=== PATIENT | female | born 1960 | race Caucasian/White ===

== ENCOUNTER 2023-04-08 14:39 | Outpatient (AMB) | payer OTHER, SELFPAY ==
--- NOTE | 2023-04-08 14:47 | MHC.OFFWIV ---
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 Patient Tobacco Use Status: Never used Tobacco Allergies ciprofloxacin [From Cipro HC] Adverse Reaction (Intermediate, Verified 04/09/23 06:28) Stomach Upset hydrocortisone [From Cipro HC] Adverse Reaction (Intermediate, Verified 04/09/23 06:28) Stomach Upset Medication List - Last Reconciled 04/09/23 by Dimitris Diaz MD atenolol 25 mg PO DAILY empagliflozin (Jardiance) 10 mg PO DAILY glipizide 10 mg PO BID lisinopril 5 mg PO DAILY metformin 1,000 mg PO BID phenazopyridine (Pyridium) 200 mg PO TID 3 days sulfamethoxazole-trimethoprim 800-160 mg (Bactrim DS) 1 tab PO BID 7 days Do you need a note to return to daycare/school/sports/work: No HPI LEAD INVESTIGATOR, 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 Reports symptoms of increased frequency of urination, burning on urination and discomfort in the suprapubic area. Symptoms started in the past few days. No fevers or chills. No nausea or vomiting. PFSH Social History Patient Tobacco Use Status: Never used Tobacco Physical Exam Vital Signs: Last Vital Signs Temp 96.2 F L 04/08/23 14:48 Pulse 71 04/08/23 14:48 BP 104/60 04/08/23 14:48 Pulse Ox 97 04/08/23 14:48 Oxygen Delivery Method Room Air 04/08/23 14:48 General: Yes Bimanual renal exam normal bilaterally, Yes bladder normal to palpation and Yes no CVA tenderness Bimanual exam- vagina & uterus: bladder normal to palpation Back/Spine/Pelvis Back: no CVA tenderness Results AMB Urinalysis, Automated UA Leukoctes 0 Eryn/uL Last Edit by Cande Pichardo CMA on 04/08/23 14:53 UA Nitrite Negative Last Edit by Cande Pichardo CMA on 04/08/23 14:53 UA Urobilinogen 0.2 mg/dL Last Edit by Cande Pichardo, KATTY on 04/08/23 14:53 UA Protein 0 mg/dL Last Edit by Cande Pichardo, KATTY on 04/08/23 14:53 UA pH 6.0 Last Edit by Cande Pichardo, KATTY on 04/08/23 14:53 UA Blood 0 George/uL Last Edit by Cande Pichardo, KATTY on 04/08/23 14:53 UA Specific [place] 1.015 Last Edit by Cande Pichardo, KATTY on 04/08/23 14:53 UA Ketone Positive Last Edit by Cande Pichardo, KATTY on 04/08/23 14:53 UA Bilirubin 0 mg/dL Last Edit by Cande Pichardo, KATTY on 04/08/23 14:53 UA Glucose 3 mg/dL Last Edit by Cande Pichardo, KATTY on 04/08/23 14:53 Results Reviewed Results Reviewed: Laboratory Last Values Urine pH (Auto) 6.0 04/08/23 14:52 Specific [place] (Auto) 1.015 04/08/23 14:52 Urine Protein (Auto) 0 mg/dL 04/08/23 14:52 Glucose (UA)(Auto) 3 mg/dL 04/08/23 14:52 Urine Ketones (Auto) Positive 04/08/23 14:52 Urine Blood (Auto) 0 George/uL 04/08/23 14:52 Urine Nitrite (Auto) Negative 04/08/23 14:52 Urine Bilirubin (Auto) 0 mg/dL 04/08/23 14:52 Urine Urobilinogen (Auto) 0.2 mg/dL 04/08/23 14:52 Leukocyte Esterase (Auto) 0 Eryn/uL 04/08/23 14:52 Assessment & Plan Assessment & Plan (1) Urinary tract infection: Code(s): N39.0 - Urinary tract infection, site not specified Plan: Take antibiotics and Pyridium as directed. Increase fluid intake. If symptoms of burning persist, new onset of fever or lower back pain, to follow-up at the clinic. Orders: Orders AMB Urinalysis Automated 04/08/23 Z13.9 - Encounter for screening, unspecified Medications: New sulfamethoxazole-trimethoprim 800-160 mg (Bactrim DS) 1 tab PO BID 14 tabs 0RF 7 days phenazopyridine (Pyridium) 200 mg PO TID 9 tabs 0RF 3 days Coding Level of Care Code Est Pt Level 3 (32620) Diagnoses Urinary tract infection N39.0
[2023-04-08 14:48] VITALS: BP 104/60; PULSE 71; TEMP 35.7; O2SAT 97
== END 2023-04-08 15:38 | disposition home or self-care (01) ==
LOC: HO.HMGWI 14:39
PROVIDERS: PCP Internal Medicine; Visit Provider Internal Medicine
DX: N39.0 Urinary tract infection, site not specified (principal)
CPT/HCPCS: 81003; 99213

== ENCOUNTER 2024-01-03 13:09 | Outpatient (AMB) | payer OTHER, SELFPAY ==
--- NOTE | 2024-01-03 13:20 | AM.OFFWIN_ITS ---
Intake Vital Signs 01/03/24 13:21 Height 5 ft 4 in Weight 149 lb BMI 25.6 BP 118/60 Blood Pressure Location Lt brachial Position Sitting Pulse 69 Pulse Source Pulse Oximeter Temp 97.5 F Temp Source Oral Pulse Oximetry (%) 97 Oxygen Delivery Method Room Air Intake Visit Reasons: EP sinus/head pressure lost taste Intake Note: Pt is here today c/o sinus/head congestion. Lost of taste x5 days Patient Tobacco Use Status: Never used Tobacco Allergies ciprofloxacin [From Cipro HC] Adverse Reaction (Intermediate, Verified 01/03/24 13:48) Stomach Upset hydrocortisone [From Cipro HC] Adverse Reaction (Intermediate, Verified 01/03/24 13:48) Stomach Upset Medication List - Last Reconciled 01/03/24 by Katy Blankenship, WARD HELPER- atenolol 25 mg PO DAILY empagliflozin (Jardiance) 10 mg PO DAILY glipizide 10 mg PO BID lisinopril 5 mg PO DAILY metformin 1,000 mg PO BID HPI HPI Comments History of Present Illness Details Here today with complaints of sinus pressure, congestion, cough. This has been ongoing for about a week. She was seen by another urgent care on and started on Augmentin. Unfortunately she continues to have pressure in her head and sinuses. She has also lost her sense of smell and taste. She is using Flonase and Zyrtec in addition to taking the Augmentin. She reports that home COVID tests have been negative. [facility] Social History Patient Tobacco Use Status: Never used Tobacco Review of Systems Const All systems reviewed & are unremarkable except as noted in HPI and below Physical Exam Vital Signs: Last Vital Signs Temp 97.5 F 01/03/24 13:21 Pulse 69 01/03/24 13:21 BP 118/60 01/03/24 13:21 Pulse Ox 97 01/03/24 13:21 Oxygen Delivery Method Room Air 01/03/24 13:21 BMI result Body Mass Index 25.6 Const Other: Awake alert NAD Sclera and conjunctiva clear bilat TM intact and clear bilat Nares patent, turbinates within normal limits, frontal and maxillary sinus tenderness bilat MMM, pharynx WNL RRR LS CTAB Assessment & Plan Assessment & Plan (1) Upper respiratory infection: Code(s): J06.9 - Acute upper respiratory infection, unspecified Qualifiers: URI type: unspecified URI Qualified Code(s): J06.9 - Acute upper respiratory infection, unspecified Plan: . Orders: Orders SARS-CoV2/FLU/RSV Today R09.89 - Other specified symptoms and signs involving the circulatory and respiratory systems Medications: New prednisone 20 mg PO DAILY 5 tabs 0RF Patient Instructions: Viral swab which looks for COVID, flu, RSV obtained today, results pending at the time of the note closure. Patient will be notified only if positive results. She should continue to take her Augmentin as directed. I have sent in a new prescription for prednisone to help with the pain and inflammation that she is experiencing in her sinuses. She was educated about the effects of prednisone and how to manage with her diabetes. She was given an out of work note through 01/07/2024 that she can use if she needs it. If she continues to feel unwell or does not feel any better with this treatment, I recommend that she follow up with her primary care provider. Coding Level of Care Code Est Pt Level 4 (63924) Diagnoses Upper respiratory tract infection, unspecified type J06.9 URI type: unspecified URI
[2024-01-03 13:21] VITALS: BP 118/60; PULSE 69; TEMP 36.4; O2SAT 97; BMI 25.6
== END 2024-01-03 14:11 | disposition home or self-care (01) ==
PROVIDERS: PCP Internal Medicine; Visit Provider Nurse Practitioner Family
DX: J06.9 Acute upper respiratory infection, unspecified (principal)
CPT/HCPCS: 99051; 99214

== ENCOUNTER 2024-01-03 15:08 | Outpatient (REF) | payer OTHER, SELFPAY ==
[2024-01-03 15:59] LABS: Influenza A PCR NEGATIVE (Negative); Influenza B PCR NEGATIVE (Negative); Resp Syncy Virus RNA Qual PCR NEGATIVE (Negative); SARS COV2 PCR INHOUSE NEGATIVE (Negative)
== END 2024-01-03 15:09 | disposition home or self-care (01) ==
LOC: HO.LNP 15:08
PROVIDERS: Visit Provider Nurse Practitioner Family
DX: R09.89 Other specified symptoms and signs involving the circulatory and respiratory systems (principal)
CPT/HCPCS: 0241U

== ENCOUNTER 2024-03-07 00:30 | Emergency (ER) | payer OTHER, SELFPAY ==
--- NOTE | 2024-03-07 00:37 | ED.GENADULT ---
HPI - General Adult General Chief complaint: General Medical Stated complaint: allergic reaction? swollen face Time Seen by Provider: 03/07/24 00:35 Source: patient Mode of arrival: ambulatory Limitations: no limitations History of Present Illness ED Provider: Kim MENDOZA HPI narrative: 63 yo f presents w/ rash to face/ cheeks , nausea, itchy heavy tounge s/p eating beats at around 5:00pm earlier today. Some symptoms started shortly after and progressed throughout the night. She last ate beats years ago. All other things she had for dinner she eats regularly and has never had issues with them. Reports she thought she was short of breath earlier but this improved now she is mostly concerned that her cheeks look swollen and her tongue is tingly. She is on lisinopril. She denies fevers, chills, cp, sob, vomiting, diarrhea, abd pain. No new products other than beats that she can think of. No allergy testing in the past. She doesnt carry an epipen. Did not take anything otc at home. Related Data Home Medications ?Medication ?Instructions ?Recorded ?Confirmed atenolol 25 mg tablet 25 mg PO DAILY 04/08/23 01/03/24 empagliflozin 10 mg tablet 10 mg PO DAILY 04/08/23 01/03/24 (Jardiance) glipizide 5 mg tablet 10 mg PO BID 04/08/23 01/03/24 lisinopril 5 mg tablet 5 mg PO DAILY 04/08/23 01/03/24 metformin 500 mg tablet 1,000 mg PO BID 04/08/23 01/03/24 Previous Rx's ?Medication ?Instructions ?Recorded prednisone 20 mg tablet 20 mg PO DAILY #5 tabs 01/03/24 diphenhydramine HCl 25 mg capsule 25 mg PO TID PRN allergic reaction 03/07/24 (Benadryl) #20 caps epinephrine 0.3 mg/0.3 mL 0.3 mg (0.3 mL) IM Q4H PRN 03/07/24 injection, auto-injector (EpiPen anaphylaxis #2 ea 2-Robert) prednisone 20 mg tablet 20 mg PO DAILY 5 days #5 tabs 03/07/24 Allergies Allergy/AdvReac Type Severity Reaction Status Date / Time ciprofloxacin [From [facility]] AdvReac Intermediate Stomach Verified 03/07/24 00:45 Upset Review of Systems Review of Systems: Yes all other systems are reviewed and are negative [facility] Past Medical History Attestation statement: The following information was validated with the patient. Source: old records reviewed and nursing notes reviewed Social History Social History Patient Tobacco Use Status: Never used Tobacco Patient : No Physical Exam ED Vital Signs: Vital Signs - 24 hr 03/07/24 00:39 Temperature 97.4 F Pulse Rate 74 Respiratory Rate 18 Blood Pressure 156/74 H Pulse Oximetry 100 Oxygen Delivery Method Room Air BMI result Body Mass Index 25.6 vss Appearance: Alert.? Oriented X3.? No acute distress.? Head: Normocephalic, atraumatic, no step-offs or deformities + mild flushing of the cheeks b/l Eyes: Pupils equal, round and reactive to light.? Neck: Normal inspection.? Neck supple.? ENT: patent airway. uvula midline. No swelling to hard/ soft palate, lips, tongue, cheeks. CVS: Normal heart rate and rhythm.? Pulses normal.? Respiratory: No respiratory distress.? Breath sounds normal.? Abdomen: Soft and nontender.? Skin: Skin warm and dry.? Normal skin color.? Normal skin turgor.? Extremities: No lower extremity edema.? No calf ttp. 5/5 strength to bilateral upper and lower extremities Back: No midline tenderness, no C-spine tenderness, full range of motion, no CVA tenderness bilaterally Neuro: Oriented X 3.? No motor deficit.? No sensory deficit. CN 2-12 intact Course Reevaluation(s) Reevaluation #1: POC 152 patient ate prior to arrival. Will hold on insulin at this time. I do not suspect DKA, HHS. Patient reports shes feeling better tonuge no longer heavy. Tired and light headed --> likely from the Benadryl. Time: 01:25 Reevaluation #2: Plan is dc at 2:30 no signs of airway compromise. No signs of anaphylaxis. Had a long conversation with patient and significant other at the bedside in regards to EpiPen use and proper use. They verbalized understanding. Educated patient on diagnosis and treatment plan, answered all question, patient verbalizes understanding. At this time patient will be discharged home, advised to return with new or worsening symptoms. Educated on worrisome signs and symptoms and when to return. At this time I feel comfortable discharge home. Time: 01:26 Medications Administered Discontinued Medications Generic Name Dose Route Start Last Admin Trade Name Debbie PRN Reason Stop Dose Admin Dexamethasone Sodium Phosphate 10 mg 03/07/24 00:39 03/07/24 00:59 Dexamethasone Sod Phosphate 10 Mg/Ml Vial IVPUSH 03/07/24 00:40 10 mg ONCE ONE Administration Diphenhydramine HCl 50 mg 03/07/24 00:39 03/07/24 00:58 Diphenhydramine Hcl 50 Mg/Ml Vial IVPUSH 03/07/24 00:40 50 mg ONCE ONE Administration Famotidine 20 mg 03/07/24 00:39 03/07/24 00:58 Famotidine/Pf 20 Mg/2 Ml Vial IVPUSH 03/07/24 00:40 20 mg ONCE ONE Administration Medical Decision Making Medical Decision Making [facility] Narrative: 0052 63-year-old female presents with concerned she may be having an allergic reaction 2 beats. Physical exam No swelling to hard/ soft palate, lips, tongue, cheeks. Bilateral flushing of the cheeks History and physical exam concerning for allergic reaction. Unlikely anaphylaxis or angioedema. No signs of acute threat the airway. Plan at this time will give IV meds and monitor. Differential Diagnosis Differential Diagnoses: The differential diagnosis associated with the presentation includes History and physical exam concerning for allergic reaction. Unlikely anaphylaxis or angioedema. No signs of acute threat the airway. Admission/Observation Consideration of admission/observation: Escalation of care including admission/observation considered Lab Data [facility] Lab Attestation statement: I reviewed the patient's lab results. Prescription Management I considered prescription management with: Other (benadryl, prednsione, epipen ) Chronic Conditions Patient?s care impacted by: Other Critical Care Time Critical Care Time Critical Care Time: Yes Total Critical Care Time: 35 Attestation: I attest to this time spent taking care of the patient, obtaining history, physical, reviewing labs, imaging, speaking to my attending, specialist or hospitalist. Discharge Plan Discharge Clinical Impression: Allergic reaction Patient Disposition: Home, Self-Care Instructions: General Allergic Reaction (ED), Allergy Testing (ED) Additional Instructions: Take your medications as prescribed. If you were prescribed antibiotics today, it is important that you take your medication to their entirety, do not skip any doses, do not finish them early. Follow-up with your primary care provider this week. Return to the emergency department with new or worsening symptoms. Such as fevers, chills, chest pain, shortness of breath, nausea, vomiting, dizziness, headache, vision changes, lethargy In case of emergency call 911 Follow-up with allergy and immunology How to use an EpiPen: ? Place the orange tip against the middle of the outer thigh. ? Swing and push the auto-injector firmly into the thigh until it ?clicks? ? Hold firmly in place for three seconds?count slowly, ?1, 2, 3? An EpiPen has been sent to your pharmacy this should only be used in severe emergency such as inability to breathe trouble speaking, shortness breath or any signs of anaphylaxis as discussed. If he use an EpiPen it is crucial you come in to an emergency department to be evaluated as you can have a rebound effect. Please follow-up with an allergy doctor. Prescriptions: New prednisone 20 mg tablet 20 mg PO DAILY 5 Days Qty: 5 0RF diphenhydramine HCl [Benadryl] 25 mg capsule 25 mg PO TID PRN (Reason: allergic reaction) Qty: 20 0RF epinephrine [EpiPen 2-Robert] 0.3 mg/0.3 mL auto-injector 0.3 mg IM Q4H PRN (Reason: anaphylaxis) Qty: 2 0RF No Action glipizide 5 mg tablet 10 mg PO BID lisinopril 5 mg tablet 5 mg PO DAILY atenolol 25 mg tablet 25 mg PO DAILY metformin 500 mg tablet 1,000 mg PO BID Jardiance 10 mg tablet 10 mg PO DAILY prednisone 20 mg tablet 20 mg PO DAILY Qty: 5 0RF Referrals: [facility] [Outside] - 2 days Physician,Unknown J [Primary Care Provider] - 2 days Print Language: Danish
[2024-03-07 00:39] VITALS: BP 156/74; PULSE 74; RESP 18; TEMP 36.3; O2SAT 100; BMI 25.6
[2024-03-07] MEDS: Famotidine/PF 20 MG/2 ML VIAL IVPUSH (00:58)
[2024-03-07] MEDS: diphenhydrAMINE HCL 50 MG/ML VIAL IVPUSH (00:58)
[2024-03-07] MEDS: dexAMETHasone sod phosphate 10 MG/ML VIAL IVPUSH (00:59)
[2024-03-07 01:27] LABS: Glucose, Whole Blood 152 mg/dL (60-115)
[2024-03-07 02:33] VITALS: BP 156/74; PULSE 74; RESP 18; TEMP 36.3; O2SAT 100
== END 2024-03-07 02:44 | disposition home or self-care (01) ==
LOC: HO.ED 01:32
PROVIDERS: Emergency Provider Emergency Medicine; PCP Internal Medicine
DX: L50.0 Allergic urticaria (principal); Z79.899 Other long term (current) drug therapy
CPT/HCPCS: 82947; 96374; 96375; 99284; J1100; J1200